=== PATIENT | male | born 1945 | race Caucasian/White ===

== ENCOUNTER 2017-05-02 07:49 | Day surgery (SDC) | payer MEDICARE ==
--- NOTE | 2017-05-02 08:59 | Operative Note ---
Colonoscopy ([facility]) Procedure date: 05/02/17 Date of : 45 Procedure:Colonoscopy Colonoscopy with cold snare polypectomy Indications: Mr. Leslie is a 72-year-old gentleman who is here for diagnostic colonoscopy. He was recently found to have borderline anemia with hemoglobin of 12.5. The patient also had slightly elevated creatinine of 1.25. The patient has had routine colonoscopies in April 2009 at which time 3 polyps (tubular adenomas 2/ hyperplastic polyp 1) were removed. His last colonoscopy in February 2014 revealed a single polyp (serrated adenoma 1) which was removed. He does state that his mother had colon cancer twice (once in her mid 70s and again in her mid 80s). The patient had been on Aleve for a month but his last dose was 3 or 4 weeks ago. He did have a nosebleed about a week before the blood work was drawn. He reports no anticoagulation. He is on a baby aspirin. He reports no hematochezia or melena. He has seen no bright red blood. He reports no abdominal pain, weight loss or change in his bowel habits. Performing Provider: Manish Cazares MD Referrring Provider: Enma Ramon M.D. Sedation: Fentanyl 100 mg IV/Versed 5 mg Procedure: Prior to the procedure, a history and physical exam was performed, and patient medications and allergies were reviewed. The risks and benefits of the procedure and the sedation options and risks were discussed with the patient. All questions were answered and informed consent was obtained. Patient identification and proposed procedure were verified by the physician and the nurse. The patient was placed in a left lateral decubitus position. Throughout the procedure, the patient's blood pressure, pulse, and oxygen saturations were monitored continuously. Findings: On digital rectal examination there was normal rectal tone. There were no external hemorrhoids. The prostate was 2+, smooth symmetric without nodules. The colonoscope was introduced through the anal canal to the rectum and advanced to the cecum. The ileocecal valve and appendiceal orifice were identified. The scope was advanced a short distance into the ileum which appeared grossly normal. The scope was then withdrawn into the colon. There were 2 colon polyps identified in the ascending 1 and descending 1. These ranged in size from 4 and 7 mm and were all removed via cold snare polypectomy. The remaining cecum, ascending, transverse, descending, sigmoid and rectum were grossly normal. There were no other mucosal abnormalities identified. Upon retroflexion within the rectum there were grade 1 internal hemorrhoids. Impressions: 1. Colonic polyps 2 2. Grade 1 internal hemorrhoids Recommendations: I will follow up the polyp pathology and recommend repeat colonoscopy again in 5 years based upon the patient's family history and polyp histology. I would encourage fiber supplementation on a long-term daily maintenance basis. His anemia was borderline and very mild (hemoglobin 12.5 and hematocrit 38.7) and may be related to some mild renal insufficiency. The patient does not have any clinical evidence of gastrointestinal blood loss. Complications: None EBL (ml): 0 at 0859
[2017-05-02 14:43] VITALS: BP 112/68
== END 2017-05-02 13:00 | disposition home or self-care (01) ==
LOC: SDC 07:49
PROVIDERS: Internal Medicine Gastroenterology
PROC: 0DBM8ZX Excision of Descending Colon, Via Natural or Artificial Opening Endoscopic, Diagnostic (ICD-10-PCS; 2017-05-02)
PROC: 0DBK8ZX Excision of Ascending Colon, Via Natural or Artificial Opening Endoscopic, Diagnostic (ICD-10-PCS; principal; 2017-05-02 08:30)
DX: Z12.11 Encounter for screening for malignant neoplasm of colon (principal); D12.2 Benign neoplasm of ascending colon; D12.4 Benign neoplasm of descending colon; K64.0 First degree hemorrhoids